=== PATIENT | female | born 1995 | race Caucasian/White ===

== ENCOUNTER → 2017-11-04 23:57 | Observation (INO) ==
[2017-11-04 23:19] LABS: Basophils # 0.1 K/mcL (0.0-0.2); Basophils % 0.4 %; Eosinophils # 0.3 K/mcL (0.0-0.6); Eosinophils % 1.1 %; Hematocrit 33.1 % (35.3-44.9); Hemoglobin 11.5 g/dL (11.5-15.4); Immature Granulocytes % 3.7 % (0-4); Lymphocytes # 3.5 K/mcL (0.6-4.6); Lymphocytes % 15.6 %; Mean Corpuscular HGB Conc 34.7 g/dL (31.6-35.5); Mean Corpuscular Hemoglobin 30.7 pg (28.0-33.3); Mean Corpuscular Volume 88.5 fL (83.0-100.0); Mean Platelet Volume 10.9 fL (9.4-12.4); Monocytes % 4.4 %; Platelet Count 190 K/mcL (140-400); Red Blood Count 3.74 M/mcL (3.82-4.97); Red Cell Distribution Width 13.2 % (11.5-14.5); Segmented Neutrophils % 74.8 %
[2017-11-04 23:25] LABS: Amphetamine Screen,Urine Negative ng/mL (Cutoff=1000); Barbiturate Screen,Urine Negative ng/mL (Cutoff=200); Benzodiazepines Screen,Urine Negative ng/mL (Cutoff=200); Cannabinoid Screen,Urine Negative ng/mL (Cutoff = 50); Cocaine Screen,Urine Negative ng/mL (Cutoff= 300); Opiate Screen,Urine Negative ng/mL (Cutoff=300); Phencyclidine Screen,Urine Negative ng/mL (Cutoff=25)
--- NOTE | 2017-11-04 23:38 | OB/GYN Progress Note ---
Date of Encounter: 11/04/17 Time of Encounter: 23:30 - Assessment and Plan (1) 23 weeks gestation of Current Visit: Yes Status: Acute (2) Traumatic injury during in second trimester Current Visit: Yes Status: Acute Placed on observation heart tones reassuring VSS type and screen pending Kleihauer-Betke Hgb pending Administer RhoGam 1,500 unit Plan for discharge with precautions and follow-up outpatient Subjective - Subjective Principal diagnosis: Fall during second trimester Interval history: Ms. Bragg is a 22 year old female at 23 weeks gestation who presents to labor and delivery due to fall at 1700. The patient reports that she caught herself from falling on her abdomen. She reports normal movement, denies contractions, vaginal bleeding, leakage of fluid. Denies any pain, fever, chills , nausea, vomiting, chest pain, shortness of breath, headache, vision problems. She has no acute complaints. She receives care from Dr. Hansen, last outpatient visit on 10/15/17. 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 Blood type: O- Hep B antigen: NR HIV antibody: NR T Pallidum: Negative Rubella: immune Varicella: immune Antepartum ROS: movement normal, no loss of fluid, no vaginal bleeding, no contractions Objective - Vital Signs Vital Signs: Intake and Output 11/04/17 11/04/17 11/04/17 07:59 15:59 23:59 Other: Weight 78.018 kg Patient Weight 11/04/17 23:59 Weight 78.018 kg - Exam FHR: auscultation normal, category 1 Auscultation: bilateral: normal Abdomen: Present: normal appearance, soft, gravid Uterus: Present: normal, firm - Labs Labs: Abnormal lab results WBC 22.7 K/mcL (4.3-11.1) H 11/04/17 23:00 RBC 3.74 M/mcL (3.82-4.97) L 11/04/17 23:00 Hct 33.1 % (35.3-44.9) L 11/04/17 23:00 Neutrophils # 17.0 K/mcL (1.6-8.9) H 11/04/17 23:00 Fibrinogen 445 mg/dL (169-393) H 11/04/17 23:00
[~2017-11-04 23:57] MED LIST: Rho Immune Globulin 1,500 UNIT SYRINGE IM ONE
== END | disposition home or self-care (01) ==
LOC: 1NENULAB
PROVIDERS: ADMIT Registered Nurse; ATTEND Registered Nurse

== ENCOUNTER → 2018-01-07 13:47 | Observation (INO) ==
[2018-01-07 12:27] LABS: Hematocrit 30.5 % (35.3-44.9); Hemoglobin 11.2 g/dL (11.5-15.4); Mean Corpuscular HGB Conc 36.7 g/dL (31.6-35.5); Mean Corpuscular Hemoglobin 32.7 pg (28.0-33.3); Mean Corpuscular Volume 88.9 fL (83.0-100.0); Mean Platelet Volume 10.9 fL (9.4-12.4); Nucleated Red Blood Cells 0.2 /100 WBC (0); Platelet Count 191 K/mcL (140-400); Red Blood Count 3.43 M/mcL (3.82-4.97); Red Cell Distribution Width 14.2 % (11.5-14.5)
[2018-01-07 13:10] LABS: Alanine Aminotransferase 10 Units/L (7-52); Aspartate Amino Transferase 15 Units/L (13-39); BUN/Creatinine Ratio 12 (6-26); Blood Urea Nitrogen 7 mg/dL (6-20); Lactate Dehydrogenase 145 Units/L (140-271); Uric Acid 5.3 mg/dL (2.3-7.6); eGFR For African Americans > 60 (> 60); eGFR For Non-African Americans > 60 (> 60)
[2018-01-07 13:12] LABS: Protein/Creatinine Ratio,Urine 0.15 mg/mg (0.00-0.20)
[2018-01-07 13:53] LABS: Eosinophils # 0.4 K/mcL (0.0-0.6); Lymphocytes # 1.8 K/mcL (0.6-4.6); Monocytes # 0.7 K/mcL (0.0-1.3); Neutrophils # 14.8 K/mcL (1.6-8.9); Platelet Estimate Normal (Normal)
--- NOTE | 2018-01-07 14:26 | OB/GYN Progress Note ---
Date of Encounter: 01/07/18 Time of Encounter: 14:24 - Assessment and Plan (1) 32 weeks gestation of Current Visit: Yes Status: Acute (2) Elevated blood pressure affecting in third trimester, antepartum Current Visit: Yes Status: Acute Patient normotensive in triage. PIH labs negative. Discharged home with labor and when to return to triage precautions Subjective - Subjective Interval history: 32+ weeks gestation sent over from the L&D office for evaluation of elevated blood pressures. She had 2 blood pressures with systolic in 160s and office. Patient reports good movement, denies contractions, vaginal bleeding, leaking fluid. Patient also denies any headache, visual changes or right upper quadrant pain. Antepartum ROS: movement normal, no loss of fluid, no vaginal bleeding, no contractions Objective - Vital Signs Vital Signs: Intake and Output 01/06/18 01/07/18 01/07/18 23:59 07:59 15:59 Other: Weight 83.5 kg Patient Weight 01/07/18 23:59 Weight 83.5 kg - Exam FHR: auscultation normal FHR comments: Baseline 135 Abdomen: Present: soft, gravid Comments: +1DtR - Labs Labs: Abnormal lab results WBC 17.6 K/mcL (4.3-11.1) H 01/07/18 11:49 RBC 3.43 M/mcL (3.82-4.97) L 01/07/18 11:49 Hgb 11.2 g/dL (11.5-15.4) L 01/07/18 11:49 Hct 30.5 % (35.3-44.9) L 01/07/18 11:49 MCHC 36.7 g/dL (31.6-35.5) H 01/07/18 11:49 Neutrophils # 14.8 K/mcL (1.6-8.9) H 01/07/18 11:49 Nucleated RBCs/100 WBC 0.2 /100 WBC (0) H 01/07/18 11:49 Creatinine 0.57 mg/dL (0.60-1.20) L 01/07/18 11:49
[2018-01-07 15:08] LABS: Amphetamine Screen,Urine Negative ng/mL (Cutoff=1000); Barbiturate Screen,Urine Negative ng/mL (Cutoff=200); Benzodiazepines Screen,Urine Negative ng/mL (Cutoff=200); Cannabinoid Screen,Urine Negative ng/mL (Cutoff = 50); Cocaine Screen,Urine Negative ng/mL (Cutoff= 300); Opiate Screen,Urine Negative ng/mL (Cutoff=300); Phencyclidine Screen,Urine Negative ng/mL (Cutoff=25)
== END | disposition home or self-care (01) ==
LOC: 1NENULAB
PROVIDERS: ADMIT Obstetrics & Gynecology; ATTEND Obstetrics & Gynecology

== ENCOUNTER → 2018-02-05 23:10 | Observation (INO) ==
[2018-02-05 22:14] LABS: Bilirubin,Urine Negative (Negative); Blood,Urine Negative (Negative); Clarity,Urine Turbid (Clear); Color,Urine Yellow (Yellow); Glucose,Urine (UA) Normal (Normal); Ketones,Urine Negative (Negative); Leukocyte Esterase,Urine Trace (Negative); Nitrite,Urine Negative (Negative); PH,Urine 6.5 pH Units (5.0-8.0); Protein,Urine Negative (Neg-Trace); Specific Gravity,Urine 1.023 (1.010-1.025); Urobilinogen,Urine Normal (Normal)
[2018-02-05 22:15] LABS: Bacteria,Urine None Seen per hpf (None-Few); Hyaline Casts,Urine None Seen per lpf (None-Few); Squamous Epithelial Cell,Urine Many per lpf (None-Few)
[2018-02-05 22:24] LABS: Amphetamine Screen,Urine Negative ng/mL (Cutoff=1000); Barbiturate Screen,Urine Negative ng/mL (Cutoff=200); Benzodiazepines Screen,Urine Negative ng/mL (Cutoff=200); Cannabinoid Screen,Urine Negative ng/mL (Cutoff = 50); Cocaine Screen,Urine Negative ng/mL (Cutoff= 300); Opiate Screen,Urine Negative ng/mL (Cutoff=300); Phencyclidine Screen,Urine Negative ng/mL (Cutoff=25)
[2018-02-05 22:25] LABS: Amorphous Sediment,Urine Many (Few)
--- NOTE | 2018-02-05 23:07 | OB/GYN Progress Note ---
Date of Encounter: 02/05/18 Time of Encounter: 23:03 - Assessment and Plan (1) 36 weeks gestation of Current Visit: Yes Status: Acute (2) Uterine contractions during Current Visit: Yes Status: Acute No change on cervical exam from last office visit, with no change on repeat cervical exam. Patient states would rather go home versus having continued observation. Discharged home with labor and when to return to triage precautions. Patient verbalizes understanding Subjective - Subjective Interval history: 36+2 weeks gestation presents to triage with complaints of contractions since this afternoon. Patient states she has been having contractions off and on all day today and they have gotten stronger more consistent this evening. Reports good movement today, denies any vaginal bleeding or leaking of fluid Antepartum ROS: movement normal, contractions, no loss of fluid, no vaginal bleeding Objective - Vital Signs Vital Signs: Intake and Output 02/05/18 02/05/18 02/05/18 07:59 15:59 23:59 Other: Weight 85.2 kg Patient Weight 02/05/18 23:59 Weight 85.2 kg - Exam FHR: auscultation normal FHR comments: Baseline 145 Abdomen: Present: normal appearance, soft, gravid Cervical dilation: 1 cm per rn - Labs Labs: Abnormal lab results Urine Clarity Turbid (Clear) A 02/05/18 22:00 Ur Leukocyte Esterase Trace (Negative) H 02/05/18 22:00 Urine Microscopic RBC 3-5 per hpf (0-3) H 02/05/18 22:00 Urine Microscopic WBC 5-15 per hpf (0-3) H 02/05/18 22:00 Ur Squamous Epith Cells Many per lpf (None-Few) H 02/05/18 22:00 Amorphous Sediment Many (Few) H 02/05/18 22:00 Ur Culture Indicated? NO. (NO) A 02/05/18 22:00
== END | disposition home or self-care (01) ==
LOC: 1NENULAB
PROVIDERS: ADMIT Advanced Practice Midwife; ATTEND Advanced Practice Midwife

== ENCOUNTER 2018-02-26 07:55 | Inpatient (IN) ==
[2018-02-26] MEDS ORDERED: Famotidine 20 MG/2 ML VIAL IVP PRN (08:04)
[2018-02-26] MEDS ORDERED: miSOPROStol 25 MCG TABLET VG PRN (08:04)
[2018-02-26] MEDS ORDERED: Ondansetron 4 MG/2 ML VIAL IVP PRN (08:04)
[2018-02-26] MEDS ORDERED: *HR* Nalbuphine 10 MG/ML AMPUL IVP PRN (08:04)
[2018-02-26] MEDS ORDERED: Metoclopramide 10 MG/2 ML VIAL IVP PRN (08:04)
[2018-02-26] MEDS ORDERED: Naloxone 0.4 MG/ML INJ IVP PRN (08:04)
[2018-02-26] MEDS ORDERED: D5% in 0.45% NACL 1,000 ML IVC SCH (08:15)
[2018-02-26] MEDS ORDERED: Ringers Solution, Lactated 1,000 ML ONE (08:48)
[2018-02-26 09:03] LABS: Basophils # 0.1 K/mcL (0.0-0.2); Basophils % 0.3 %; Eosinophils # 0.2 K/mcL (0.0-0.6); Eosinophils % 0.8 %; Hematocrit 33.4 % (35.3-44.9); Hemoglobin 11.9 g/dL (11.5-15.4); Lymphocytes # 2.7 K/mcL (0.6-4.6); Lymphocytes % 12.8 %; Mean Corpuscular HGB Conc 35.6 g/dL (31.6-35.5); Mean Corpuscular Hemoglobin 32.1 pg (28.0-33.3); Mean Platelet Volume 11.2 fL (9.4-12.4); Neutrophils # 16.2 K/mcL (1.6-8.9); Platelet Count 181 K/mcL (140-400); Red Blood Count 3.71 M/mcL (3.82-4.97); Red Cell Distribution Width 14.5 % (11.5-14.5); Segmented Neutrophils % 78.1 %
[2018-02-26 09:21] LABS: Amphetamine Screen,Urine Negative ng/mL (Cutoff=1000); Barbiturate Screen,Urine Negative ng/mL (Cutoff=200); Benzodiazepines Screen,Urine Negative ng/mL (Cutoff=200); Cannabinoid Screen,Urine Negative ng/mL (Cutoff = 50); Cocaine Screen,Urine Negative ng/mL (Cutoff= 300); Opiate Screen,Urine Negative ng/mL (Cutoff=300); Phencyclidine Screen,Urine Negative ng/mL (Cutoff=25)
--- NOTE | 2018-02-26 09:48 | OB/GYN History & Physical ---
Date of Encounter: 02/26/18 Time of Encounter: 09:45 Assessment and Plan (1) First in adolescent 16 years of age or older in third trimester Current visit: Yes Status: Acute (2) 39 weeks gestation of Current visit: Yes Status: Acute (3) Encounter for elective induction of labor Current visit: Yes Status: Acute Patient will be induced with Cytotec once contractions are regular patient will be artificially ruptured epidural replaced if needed plan is to anticipate vaginal delivery History of Present Illness HPI: Ms. Bragg is a 22 year old female 1 para 0 at 39-2/7 weeks who is port in for induction of labor second term with favorable cervix. Patient was 3-4 cm in the office and has been having occasional contractions she denies any leaking of fluid still having good movement no bleeding because she had a favorable cervix she was wanting be delivered patient is scheduled for induction today patient's had a relatively unremarkable course. She is O negative, GBS negative, rubella positive, Varicella positive Past Med Surg Social Fam HX - Past Medical History Source: patient, old records reviewed Medical history: no medical history Psychiatric history: no psych history - Past Surgical History Surgical History: other (Tonsillectomy) - Social History Smoking Status: Never smoker Smokeless Tobacco Status: No Alcohol use: none Drug use: none Occupational status: employed Current living situation: Home - Independent Activity Level: Independent ambulation Recent Out of Country Travel Within the Last 8 Weeks: No Exposure or Possible Exposure to Illness During Travel: No - Family History Mother Name: Joan Living Status: Still Living Hx Family Cardiac Disorders: No Hx Family Respiratory Disorders: No Hx Family Cancer: No Hx Family GI Disorders: No Hx Family Endocrine Disorder: No Hx Family Neuromuscular Disorders: No Hx Family Neurologic Disorders: No Hx Family HEENT Disorders: No Hx Family Autoimmune Disorders: No Hx Family Medical Disorders: No - Additional Family History Additional family history: Family history noncontributory at this time Obstetrical History - Pregnancies : 1 Para: 0 Medications and Allergies Doxylamine/Pyridoxine HCl [Diclegis Dr 10-10 mg Tablet] 1 tab PO DAILY PRN 11/04 [History] Vit/Iron Fumarate/FA [ Tablet] 1 each PO DAILY 11/04/17 [ History] 3 Allergy/AdvReac Type Severity Reaction Status Date / Time No Known Allergies Allergy Verified 11/04/17 22:53 Review of System OB All systems PM: reviewed and no additional remarkable complaints except as stated Exam - Constitutional Constitutional: well developed, well nourished, no acute distress, average body habitus - HEENT HEENT: EOMI, Normocephaly, Mucus Membranes Moist - Neck Neck exam: full ROM - Lungs Respiratory exam: CTAB - Cardiovascular Cardiovascular exam: RRR - Abdomen Abdomen: Present: bowel sounds normal, gravid (Heart tones 140s reactive occasional contractions seen) - Extremities Extremities exam: full ROM - Vagina Vagina: Present: normal moisture - Cervix Dilation: 3 Effacement: 90 Station: -2 (25 g of Cytotec was placed vaginally) Results Result Diagrams: 02/26/18 08:43 Abnormal lab results WBC 20.8 K/mcL (4.3-11.1) H 02/26/18 08:43 RBC 3.71 M/mcL (3.82-4.97) L 02/26/18 08:43 Hct 33.4 % (35.3-44.9) L 02/26/18 08:43 MCHC 35.6 g/dL (31.6-35.5) H 02/26/18 08:43 Neutrophils # 16.2 K/mcL (1.6-8.9) H 02/26/18 08:43 All other labs normal. - VTE Reasons for not Prescribing Prophylaxis: Treatment not Indicated - Low risk for VTE
--- NOTE | 2018-02-26 11:19 | OB Labor Progress Note ---
Date of Encounter: 02/26/18 Time of Encounter: 11:18 Labor Progress Note - Subjective Subjective: Patient resting in bed, denies any pain at this time. - Heart Tones Heart Tones: 120 bpm moderate amount of variability +15x15 accels no decels noted. Cat. 1 tracing. - Burgess Burgess: irregular - Interventions Interventions: Discussed POC with patient. - Plan Plan: Continue labor management anticipate
[2018-02-26] MEDS ORDERED: miSOPROStol 100 MCG TABLET PO STA (13:27)
--- NOTE | 2018-02-26 14:09 | OB Labor Progress Note ---
Date of Encounter: 02/26/18 Time of Encounter: 14:00 Labor Progress Note - Subjective Subjective: Patient's feeling occasional contractions but still tolerating them well. - Cervix Cervix: 4/90/-1 AROM clear fluid - Heart Tones Heart Tones: heart tones 140s reactive - Tripp Tripp: Contractions irregular every 3-5 minutes - Plan Plan: If patient does not make any change in the next hour we will give her second dose of Cytotec 50 g by mouth
[2018-02-26] MEDS ORDERED: *HR* Ropivacaine/PF 0.2% 20 ML VIAL EP ONE (15:02)
[2018-02-26] MEDS ORDERED: *HR* FentaNYL (PF) 100 MCG/2 ML VIAL EP ONE (15:02)
--- NOTE | 2018-02-26 15:05 | Anesthesia Evaluation PreOp ---
Date of Encounter: 02/26/18 Time of Encounter: 15:03 - Past History Planned Operation: rusty Cardiac History: Denies any Significant Hx Pulmonary History: Denies Any Significant HX ORDER CLERK History: Denies Any Significant HX Other Medical History: GERD Anesthesia History: No Prior Anesthetic Complications, Past Anesthesia (tonsil) : Yes Test: Positive Alcohol Use: none Drug use: none Medications and Allergies Doxylamine/Pyridoxine HCl [Diclegis Dr 10-10 mg Tablet] 1 tab PO DAILY PRN 11/04 [History] Vit/Iron Fumarate/FA [ Tablet] 1 each PO DAILY 11/04/17 [ History] 3 Allergy/AdvReac Type Severity Reaction Status Date / Time No Known Allergies Allergy Verified 11/04/17 22:53 - Meds/Allergy Pre-op Review Medications Reviewed: Yes Allergies Reviewed: Yes Beta Blockers on Current Med List: No Anesthesia Results - Labs 02/26/18 08:43 Anesthesia Exam 130/89 88 16 fht 155 Height: 5"3" Weight: 88 k Pain Scale: 8 Pain Scale Used: Numeric (1 - 10) - HEENT Pupil (Motor): Pupils equal Mallampati: II Teeth: Normal Oral Opening: Greater than 3 - ORDER CLERK LOC: Oriented ORDER CLERK Motor: Normal RUE, Normal LUE, Normal RLE, Normal LLE, Normal Face ORDER CLERK Sensory: Normal: RUE, LUE, RLE, LLE, Face - Cardiac Rhythm: Regular Murmur: None - Pulmonary Breath Sounds: bilateral Clear Respiratory Effort: Symmetrical Anesthesia Assess/Plan ASA Score: 2 Modified Perry Scale for Level of Consciousness: Cooperative, oriented, and tranquil Anesthetic Plan: Regional Autologous Blood: No Monitoring Plan: Standard Monitors Recovery Plan: Other (risks discussed, questions answered, consented)
[2018-02-26] MEDS ORDERED: Epidural Premix (fent/bupiv) 110 ML EP SCH (15:15)
--- NOTE | 2018-02-26 15:41 | OB Labor Progress Note ---
Date of Encounter: 02/26/18 Time of Encounter: 15:34 Labor Progress Note - Subjective Subjective: Patient breathing through contractions. - Cervix Cervix: 7.5/80/-1 - Heart Tones Heart Tones: 125 bpm moderate amount of variability +15x15 accels no decels noted. Cat. 1 tracing - Blue Jay Blue Jay: 1.5-2 - Interventions Interventions: SVE - Plan Plan: Continue labor management anticipate
[2018-02-26] MEDS ORDERED: Oxytocin 20 units/ LR 1000 mL 20 UNIT/1,000 ML BAG IVC SCH ×2 (15:45→21:24)
--- NOTE | 2018-02-26 17:02 | OB Labor Progress Note ---
Date of Encounter: 02/26/18 Time of Encounter: 17:00 Labor Progress Note - Subjective Subjective: Patient very uncomfortable feeling intense pressure - Cervix Cervix: anterior lip/90/+2 - Heart Tones Heart Tones: heart tones 140s reactive - Neshanic Neshanic: contractions every 2 min - Plan Plan: Anticipate normal spontaneous vaginal delivery
--- NOTE | 2018-02-26 19:29 | OB/GYN Procedure Note ---
Delivery - Delivery Date: 02/26/18 Provider: Price Rowe Intrapartum events: none Delivery induction: AROM, misoprostol Delivery augmentation: rupture of membranes Delivery monitor: external FHT, external uterine Anesthesia: local Quantitated Blood Loss: 100 - (s) A Delivery Date: 02/26/18 Infant Delivery Time: 18:52 Presentation: vertex Position: OA Gender: Female Viability: Viable Pounds: 6 Ounces: 14 Weight Gram: 3.135 kg at 1 minute: 8 at 5 mins: 9 Shoulder Dystocia: not encountered Specimens collected: cord blood Placenta: spontaneous Cord: nuchal cord, 3 umbilical vessels, nuchal reduced - Repair Laceration Description: Periurethral (bilateral), Perineal - 1st Degree - Complications Delivery complications: none Delivery comments: Patient is a 22-year-old 1 para 0 at 39-2/7 weeks who presented for induction of labor secondary term patient was induced with a Cytotec vaginally then artificial rupture membranes. Patient did not require an epidural progressed to complete patient possibly 45 minutes delivering a viable female in the hospital anterior presentation at 1852. There was a nuchal cord 1 was reduced there was no meconium. was bulb suctioned on the abdomen. Apgars were 8 at 1 minute, 9 at 5 minutes, infant weight was 6 lbs. 14 oz. 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
[2018-02-26] MEDS ORDERED: *HR* HYDROcodone/Acet 5/325 mg TABLET PO PRN (21:24)
[2018-02-26] MEDS ORDERED: Acetaminophen 325 MG TABLET PO PRN (21:24)
[2018-02-26] MEDS ORDERED: Measles/Mumps/Rubella Vacc 0.5 ML VIAL SQ PRN (21:24)
[2018-02-26] MEDS ORDERED: Ibuprofen 600 MG TABLET PO PRN (21:24)
[2018-02-27 05:58] LABS: Eosinophils % 0.1 %
[2018-02-27 05:59] LABS: Basophils # 0.1 K/mcL (0.0-0.2); Basophils % 0.2 %; Hematocrit 32.3 % (35.3-44.9); Hemoglobin 11.5 g/dL (11.5-15.4); Immature Granulocytes % 1.7 % (0-4); Lymphocytes # 2.4 K/mcL (0.6-4.6); Lymphocytes % 8.5 %; Mean Corpuscular HGB Conc 35.6 g/dL (31.6-35.5); Mean Corpuscular Hemoglobin 31.8 pg (28.0-33.3); Mean Corpuscular Volume 89.2 fL (83.0-100.0); Monocytes # 1.7 K/mcL (0.0-1.3); Monocytes % 6.1 %; Neutrophils # 23.3 K/mcL (1.6-8.9); Platelet Count 166 K/mcL (140-400); Red Blood Count 3.62 M/mcL (3.82-4.97); Red Cell Distribution Width 14.2 % (11.5-14.5); Segmented Neutrophils % 83.4 %
[2018-02-27 06:22] LABS: Platelet Estimate Normal (Normal)
[2018-02-27] MEDS ORDERED: Prenatal Vit/FA 1 EACH TABLET PO SCH (09:00)
[2018-02-27] MEDS ORDERED: NON-FORMULARY MEDICATION 1 EACH EACH (Prenatal Vit/Iron Fumarate/Fa [Prenatal Tablet] 1 EA PO SCH (09:00)
--- NOTE | 2018-02-27 09:58 | OB/GYN Progress Note ---
Date of Encounter: 02/27/18 Time of Encounter: 09:54 - Assessment and Plan (1) Vaginal delivery Current Visit: Yes Status: Acute Stable PPD #1 Continue current management Anticipate discharge. Subjective - Subjective Interval history: Pain well managed, bleeding minimal, , Patient reports: appetite normal, voiding normally, pain well controlled, ambulating normally [place]: doing well, nursing well Objective - Latest Vital Signs Latest vital signs: Vital Signs Temp Pulse Resp BP Pulse Ox 02/27/18 08:48 16 02/27/18 07:45 98.9 F 102 12 124/75 97 02/27/18 04:40 98.5 F 94 16 125/73 97 02/27/18 00:03 98.4 F 769 19 117/61 02/26/18 23:34 98.1 F 74 16 128/64 02/26/18 22:15 98.5 F 83 16 129/73 99 Intake and Output 02/26/18 02/27/18 02/27/18 23:59 07:59 15:59 Output Total 300 / 300 1125 / 1125 200 / 200 Balance -300 / -300 -1125 / -1125 -200 / -200 Output: Urine 100 / 100 1125 / 1125 200 / 200 Emesis 200 / 200 Other: Weight 83.8 kg Patient Weight 02/27/18 23:59 Weight 83.8 kg - Exam Lungs: bilateral: normal Chest: Normal S1, Normal S2 Extremities: Present: normal Abdomen: Present: soft Uterus: Present: firm Uterus Position: At Umbilicus - Labs Labs: Laboratory Results - last 24 hr 02/26/18 02/27/18 19:52 05:39 WBC 27.9 H RBC 3.62 L Hgb 11.5 Hct 32.3 L MCV 89.2 MCH 31.8 MCHC 35.6 H RDW 14.2 Plt Count 166 MPV 11.0 Immature Gran % 1.7 Seg Neutrophils % 83.4 Lymphocytes % 8.5 Monocytes % 6.1 Eosinophils % 0.1 Basophils % 0.2 Neutrophils # 23.3 H Lymphocytes # 2.4 Monocytes # 1.7 H Eosinophils # 0.0 Basophils # 0.1 Platelet Estimate Normal Baby's Blood Type O RH NEGATIVE Mother's Blood Type O RH NEGATIVE
--- NOTE | 2018-02-27 16:32 | Discharge Summary ---
Date of Encounter: 02/27/18 Time of Encounter: 16:28 - Discharge Diagnosis (1) Vaginal delivery Priority: Primary Status: Acute Comments: Stable in PP, meeting all milestones, desires discharge - Discharge Medications Prescriptions: Ibuprofen [Motrin] 600 mg PO Q6HR PRN #60 tablet PRN Reason: Cramping Docusate [Colace] 100 mg PO BID #60 capsule Home Medications: Vit/Iron Fumarate/FA [ Tablet] 1 each PO DAILY 11/04/17 [ History] Acetaminophen [Tylenol] 650 mg PO Q6HR PRN tablet 02/27/18 [Rx] Docusate [Colace] 100 mg PO BID #60 capsule 02/27/18 [Rx] Ibuprofen [Motrin] 600 mg PO Q6HR PRN #60 tablet 02/27/18 [Rx] Allergies/Adverse Reactions: 3 Allergy/AdvReac Type Severity Reaction Status Date / Time No Known Allergies Allergy Verified 11/04/17 22:53 Data Procedures and tests throughout hospitalization: Laboratory Tests 02/26/18 02/26/18 02/26/18 08:43 08:43 19:52 WBC 20.8 H RBC 3.71 L Hgb 11.9 Hct 33.4 L MCV 90.0 MCH 32.1 MCHC 35.6 H RDW 14.5 Plt Count 181 MPV 11.2 Immature Gran % 3.0 Seg Neutrophils % 78.1 Lymphocytes % 12.8 Monocytes % 5.0 Eosinophils % 0.8 Basophils % 0.3 Neutrophils # 16.2 H Lymphocytes # 2.7 Monocytes # 1.0 Eosinophils # 0.2 Basophils # 0.1 Platelet Estimate Urine Opiates Screen Negative Ur Barbiturates Screen Negative Ur Phencyclidine Scrn Negative Ur Amphetamines Screen Negative U Benzodiazepines Scrn Negative Urine Cocaine Screen Negative U Marijuana (THC) Screen Negative Ur Drug Screen Interp See Below Baby's Blood Type O RH NEGATIVE Mother's Blood Type O RH NEGATIVE Rhogam Indicated NO 02/27/18 05:39 WBC 27.9 H RBC 3.62 L Hgb 11.5 Hct 32.3 L MCV 89.2 MCH 31.8 MCHC 35.6 H RDW 14.2 Plt Count 166 MPV 11.0 Immature Gran % 1.7 Seg Neutrophils % 83.4 Lymphocytes % 8.5 Monocytes % 6.1 Eosinophils % 0.1 Basophils % 0.2 Neutrophils # 23.3 H Lymphocytes # 2.4 Monocytes # 1.7 H Eosinophils # 0.0 Basophils # 0.1 Platelet Estimate Normal Urine Opiates Screen Ur Barbiturates Screen Ur Phencyclidine Scrn Ur Amphetamines Screen U Benzodiazepines Scrn Urine Cocaine Screen U Marijuana (THC) Screen Ur Drug Screen Interp Baby's Blood Type Mother's Blood Type Rhogam Indicated Labs on day of discharge: Labs from last 24 hours 02/27/18 02/26/18 05:39 19:52 WBC 27.9 H RBC 3.62 L Hgb 11.5 Hct 32.3 L MCV 89.2 MCH 31.8 MCHC 35.6 H RDW 14.2 Plt Count 166 MPV 11.0 Immature Gran % 1.7 Seg Neutrophils % 83.4 Lymphocytes % 8.5 Monocytes % 6.1 Eosinophils % 0.1 Basophils % 0.2 Neutrophils # 23.3 H Lymphocytes # 2.4 Monocytes # 1.7 H Eosinophils # 0.0 Basophils # 0.1 Platelet Estimate Normal Baby's Blood Type O RH NEGATIVE Mother's Blood Type O RH NEGATIVE Rhogam Indicated NO Date of admission: 02/26/18 07:55 Primary care physician: Joanie Car DO Consults: 02/26/18 21:24 Consult to Solution Developer [CONS] Routine Comment: Vaginal delivery, consult needed Discharging clinician: Kinza Brown Anticipated date of discharge: 02/27/18 - Patient Status Disposition: Home, Self-Care Condition: Good Functional capacity at discharge: independent ambulation Overall status at discharge: patient is back to baseline - Discharge Instructions Follow Up With: Joanie Car DO [Primary Care Provider] - Price Rowe DO [Partnered Physician] - - Diet and Activity Activity: resume usual activities as tolerated Diet: regular diet Hospital Course Reason for admission: IUP at term Delivery: Laceration: 1st degree Other procedures: none complications: none Discharge diagnosis: IUP at term delivered [place] baby: female Hospital course: Delivery - Delivery Date: 02/26/18 Provider: Price Rowe Intrapartum events: none Delivery induction: AROM, misoprostol Delivery augmentation: rupture of membranes Delivery monitor: external FHT, external uterine Anesthesia: local Quantitated Blood Loss: 100 - Infant (s) A Delivery Date: 02/26/18 Infant Delivery Time: 18:52 Presentation: vertex Position: OA Gender: Female Viability: Viable Pounds: 6 Ounces: 14 Weight Gram: 3.135 kg at 1 minute: 8 at 5 mins: 9 Shoulder Dystocia: not encountered Specimens collected: cord blood Placenta: spontaneous Cord: nuchal cord, 3 umbilical vessels, nuchal reduced - Repair Laceration Description: Periurethral (bilateral), Perineal - 1st Degree - Complications Delivery complications: none Delivery comments: Patient is a 22-year-old 1 para 0 at 39-2/7 weeks who presented for induction of labor secondary term patient was induced with a Cytotec vaginally then artificial rupture membranes. Patient did not require an epidural progressed to complete patient possibly 45 minutes delivering a viable female infant in the hospital anterior presentation at 1852. There was a nuchal cord 1 was reduced there was no meconium. was bulb suctioned on the abdomen. Apgars were 8 at 1 minute, 9 at 5 minutes, infant weight was 6 lbs. 14 oz. 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 Time Attestation: Total time spent providing and/or coordinating discharge services: Time Spent: Less than 30 minutes Exam - Constitutional Vitals: Temp Pulse Resp BP Pulse Ox 98.9 F 102 16 124/75 97 02/27/18 07:45 02/27/18 07:45 02/27/18 08:48 02/27/18 07:45 02/27/18 07:45 General appearance IM: A&O X 3 - Respiratory Respiratory exam: Present: CTAB - Cardiovascular Cardiovascular exam IM: Present: RRR - GI/Abdominal GI/Abdominal exam IM: soft - Uterine Tone: Firm - Extremities Exam Extremities exam IM: Present: normal capillary refill, normal inspection - Neurological Exam Neurological exam: normal gait, oriented X3 - Psychiatric Additional comments: reports good mood
[2018-02-27 16:51] VITALS: BP 130/69
== END 2018-02-27 17:20 | disposition home or self-care (01) | DRG 775 ==
LOC: 1NENULAB 07:55 → 1NENUOBS 21:23
PROVIDERS: ADMIT Obstetrics & Gynecology; ATTEND Obstetrics & Gynecology

== ENCOUNTER 2019-07-29 19:20 | Inpatient (IN) ==
[2019-07-29 17:00] LABS: Bilirubin,Urine Negative (Negative); Blood,Urine Negative (Negative); Clarity,Urine Cloudy (Clear); Color,Urine Yellow (Yellow); Glucose,Urine (UA) Normal (Normal); Ketones,Urine Trace mg/dL (Negative); Leukocyte Esterase,Urine Negative (Negative); Nitrite,Urine Negative (Negative); Protein,Urine Negative (Neg-Trace); Specific Gravity,Urine 1.015 (1.010-1.025); Urobilinogen,Urine Normal (Normal)
[2019-07-29 17:02] LABS: Bacteria,Urine None Seen per hpf (None-Few); Hyaline Casts,Urine None Seen per lpf (None-Few); RBC,Urine 0-3 per hpf (0-3); Squamous Epithelial Cell,Urine Many per lpf (None-Few); WBC,Urine 0-3 per hpf (0-3)
[2019-07-29 17:14] LABS: Amphetamine Screen,Urine Negative ng/mL (Cutoff=1000); Barbiturate Screen,Urine Negative ng/mL (Cutoff=200); Benzodiazepines Screen,Urine Negative ng/mL (Cutoff=200); Cannabinoid Screen,Urine Negative ng/mL (Cutoff = 50); Cocaine Screen,Urine Negative ng/mL (Cutoff= 300); Opiate Screen,Urine Negative ng/mL (Cutoff=300); Phencyclidine Screen,Urine Negative ng/mL (Cutoff=25)
[2019-07-29] MEDS: Ringers Solution, Lactated 1,000 ML IVC ONE ×2 (17:18→18:19)
[2019-07-29 17:31] LABS: Basophils # 0.1 K/mcL (0.0-0.2); Basophils % 0.4 %; Eosinophils # 0.1 K/mcL (0.0-0.6); Eosinophils % 0.7 %; Hematocrit 34.2 % (35.3-44.9); Hemoglobin 12.2 g/dL (11.5-15.4); Immature Granulocytes % 1.9 % (0-4); Lymphocytes # 2.9 K/mcL (0.6-4.6); Lymphocytes % 17.6 %; Mean Corpuscular HGB Conc 35.7 g/dL (31.6-35.5); Mean Corpuscular Volume 86.8 fL (83.0-100.0); Mean Platelet Volume 11.1 fL (9.4-12.4); Monocytes # 0.7 K/mcL (0.0-1.3); Monocytes % 4.5 %; Neutrophils # 12.4 K/mcL (1.6-8.9); Platelet Count 193 K/mcL (140-400); Red Blood Count 3.94 M/mcL (3.82-4.97); Segmented Neutrophils % 74.9 %; White Blood Count 16.5 K/mcL (4.3-11.1)
[~2019-07-29 19:20] MED LIST changes: +Azithromycin 500 MG in 0.9 % Sodium Chloride 250 ML IVPB ONE; +Betamethasone Acet/SodPhos 30 MG/5 ML VIAL IM SCH; +CeFAZolin Premix DUPLEX 2,000 MG/50 ML BAG IVPB ONE; +Famotidine 20 MG/2 ML VIAL IVP ONE; +Metoclopramide 10 MG/2 ML VIAL IVP ONE; +NIFEdipine 10 MG CAPSULE PO ONE; +Oxytocin 20 units/ LR 1000 mL 20 UNIT/1,000 ML BAG IVC ONE; -Rho Immune Globulin 1,500 UNIT SYRINGE IM ONE; +Ringers Solution, Lactated 1,000 ML IVC SCH; +Ringers Solution, Lactated 1,000 ML ONE
[2019-07-29] MEDS ORDERED: Metoclopramide 10 MG/2 ML VIAL ONE (19:26)
[2019-07-29] MEDS ORDERED: Famotidine 20 MG/2 ML VIAL ONE (19:27)
[2019-07-29] MEDS ORDERED: EPHEDrine 50 MG/ML VIAL ONE (19:37)
[2019-07-29] MEDS ORDERED: *HR* Morphine Sulfate/PF 10 MG/10 ML AMPUL ONE (19:37)
[2019-07-29] MEDS ORDERED: *HR* FentaNYL (PF) 100 MCG/2 ML VIAL ONE (19:37)
[2019-07-29] MEDS ORDERED: Ondansetron 4 MG/2 ML VIAL ONE (19:39)
[2019-07-29] MEDS ORDERED: Dexamethasone 4 MG/ML VIAL ONE (19:39)
[2019-07-29] MEDS ORDERED: Ringers Solution, Lactated 1,000 ML ONE (19:40)
[2019-07-29] MEDS ORDERED: *HR* Midazolam HCl 2 MG/2 ML VIAL ONE (19:41)
[2019-07-29] MEDS ORDERED: *HR* Oxytocin 10 UNIT/ML VIAL IM ONE (19:53)
[2019-07-29] MEDS ORDERED: Ketorolac 30 MG/ML VIAL ONE (19:53)
[2019-07-29] MEDS ORDERED: Ondansetron 4 MG/2 ML VIAL IVP PRN (22:56)
[2019-07-29] MEDS ORDERED: *HR* HYDROmorphone (PF) 1 MG/ML SYRINGE IVP PRN (22:56)
[2019-07-29] MEDS ORDERED: Ibuprofen 400 MG TABLET PO PRN (22:56)
[2019-07-29] MEDS ORDERED: *HR* OxyCODONE/APAP 5/325 TABLET PO PRN (22:56)
[2019-07-29] MEDS ORDERED: Morphine Sulfate 2 MG/ML SYRINGE IVP PRN (22:56)
[2019-07-30] MEDS ORDERED: Ondansetron 4 MG/2 ML VIAL IVP PRN (00:42)
[2019-07-30] MEDS ORDERED: Simethicone 80 MG TAB.CHEW PO PRN (00:42)
[2019-07-30] MEDS ORDERED: *HR* OxyCODONE/APAP 5/325 TABLET PO PRN (00:42)
[2019-07-30] MEDS ORDERED: Metoclopramide 10 MG/2 ML VIAL IVP PRN (00:42)
[2019-07-30] MEDS ORDERED: Oxytocin 20 units/ LR 1000 mL 20 UNIT/1,000 ML BAG IVC SCH ×2 (00:42)
[2019-07-30] MEDS ORDERED: Sennosides 8.6 MG TABLET PO PRN (00:42)
[2019-07-30] MEDS ORDERED: Rho Immune Globulin 1,500 UNIT SYRINGE IM ONE ×2 (00:42→17:11)
[2019-07-30] MEDS: Ibuprofen 600 MG TABLET PO PRN ×4 (03:38→20:42)
[2019-07-30] MEDS: Acetaminophen 325 MG TABLET PO PRN ×3 (06:26→18:21)
[2019-07-30 07:56] LABS: Hematocrit 31.2 % (35.3-44.9)
[2019-07-30 07:57] LABS: Hemoglobin 10.9 g/dL (11.5-15.4); Mean Corpuscular HGB Conc 34.9 g/dL (31.6-35.5); Mean Corpuscular Hemoglobin 31.5 pg (28.0-33.3); Mean Corpuscular Volume 90.2 fL (83.0-100.0); Mean Platelet Volume 11.2 fL (9.4-12.4); Platelet Count 187 K/mcL (140-400); Red Blood Count 3.46 M/mcL (3.82-4.97); Red Cell Distribution Width 13.5 % (11.5-14.5); White Blood Count 27.2 K/mcL (4.3-11.1)
[2019-07-30 08:39] LABS: Lymphocytes # 1.6 K/mcL (0.6-4.6); Monocytes # 2.2 K/mcL (0.0-1.3); Neutrophils # 23.4 K/mcL (1.6-8.9)
[2019-07-30 08:40] LABS: Platelet Estimate Normal (Normal)
[2019-07-30] MEDS: Prenatal Vit/FA 1 EACH TABLET PO SCH (09:10)
[2019-07-31] MEDS: Ibuprofen 600 MG TABLET PO PRN ×2 (02:27→08:46)
[2019-07-31 08:21] VITALS: BP 125/71
[2019-07-31] MEDS: Prenatal Vit/FA 1 EACH TABLET PO SCH (08:46)
== END 2019-07-31 14:15 | disposition home or self-care (01) | DRG 788 ==
LOC: 1NENULAB → 1NENUOBS 23:08
PROVIDERS: ADMIT Registered Nurse; ATTEND Registered Nurse